=== PATIENT | female | born 1960 | race Caucasian/White ===

== ENCOUNTER 2019-07-01 08:53 | Emergency (ER) | payer SELFPAY ==
[~2019-07-01] VITALS: Ht 165.1 cm; Wt 97.7 kg
--- NOTE | 2019-07-01 09:02 | ED General ---
General Stated Complaint: ABN LAB RESULTS History of Present Illness Date Seen by Provider: July 01, 2019 Time Seen by Provider: 09:02 Initial Comments Patient presenting to emergency department for evaluation of anemia. She says since last Saturday she has been having more dyspnea on exertion and has been more dizzy and lightheaded. She had her labs checked by her primary care provider yesterday and her hemoglobin was 6.1 and she was called this morning and told to come to the emergency department to get a blood transfusion. She denies any pain fevers chills nausea vomiting diarrhea black or bloody stools. She says this has happened at least once in the past her hemoglobin dropped to 6 and she had an extensive workup including upper and lower scopes as well as a pill endoscopy but no etiology was found to her anemia. She is in no obvious distress with normal vital signs. Allergies and Home Medications Allergies Coded Allergies: Penicillins (Verified Allergy, Unknown, rash, 07/01/19) Sulfa (Sulfonamide Antibiotics) (Verified Allergy, Unknown, rash, 07/01/19) cephalexin (Verified Allergy, Unknown, rash, 07/01/19) ciprofloxacin (Verified Allergy, Unknown, rash, 07/01/19) morphine (Verified Allergy, Unknown, headache, nausea, vomiting, 07/01/19) Patient Home Medication List Home Medication List Reviewed: Yes Review of Systems Review of Systems Constitutional: dizziness EENTM: no symptoms reported Respiratory: dyspnea on exertion Cardiovascular: no symptoms reported Gastrointestinal: no symptoms reported Genitourinary: no symptoms reported Musculoskeletal: no symptoms reported Skin: no symptoms reported Psychiatric/Neurological: No Symptoms Reported All Other Systems Reviewed Negative Unless Noted: Yes Past Ybmtgdi-Cacgxu-Ufbtsg Hx Patient Social History Recent Foreign Travel: No Contact w/Someone Who Travel: No Physical Exam Vital Signs Vital Signs - First Documented 07/01/19 09:05 Temp 36.5 Pulse 104 Resp 16 B/P (MAP) 138/59 (85) Pulse Ox 100 O2 Delivery Room Air Capillary Refill : Height, Weight, BMI Height: '" Weight: lbs. oz. kg; BMI Method: General Appearance: No Apparent Distress, WD/WN Eyes: Bilateral Eye Conjunctivae Pale HEENT: PERRL/EOMI Neck: Supple Respiratory: No Respiratory Distress Cardiovascular: Regular Rate, Rhythm Gastrointestinal: Non Tender, Soft Back: Normal Inspection Extremity: Normal Capillary Refill Neurologic/Psychiatric: Alert, Oriented x3 Skin: Warm/Dry Progress/Results/Core Measures Suspected Sepsis SIRS Temperature: Pulse: Respiratory Rate: Laboratory Tests 07/01/19 09:12: White Blood Count 8.6 Blood Pressure / Mean: Laboratory Tests 07/01/19 09:12: Creatinine 0.69, INR Comment 1.0, Platelet Count 240, Total Bilirubin 0.2 Results/Orders Lab Results Laboratory Tests Test 07/01/19 09:12 Range/Units White Blood Count 8.6 4.3-11.0 10^3/uL Red Blood Count 2.85 L 4.35-5.85 10^6/uL Hemoglobin 5.7 *L 11.5-16.0 G/DL Hematocrit 20 *L 35-52 % Mean Corpuscular Volume 72 L 80-99 FL Mean Corpuscular Hemoglobin 20 L 25-34 PG Mean Corpuscular Hemoglobin Concent 28 L 32-36 G/DL Red Cell Distribution Width 16.3 H 10.0-14.5 % Platelet Count 240 130-400 10^3/uL Mean Platelet Volume 9.7 7.4-10.4 FL Neutrophils (%) (Auto) 58 42-75 % Lymphocytes (%) (Auto) 27 12-44 % Monocytes (%) (Auto) 7 0-12 % Eosinophils (%) (Auto) 7 0-10 % Basophils (%) (Auto) 1 0-10 % Neutrophils # (Auto) 4.9 1.8-7.8 X 10^3 Lymphocytes # (Auto) 2.3 1.0-4.0 X 10^3 Monocytes # (Auto) 0.6 0.0-1.0 X 10^3 Eosinophils # (Auto) 0.6 H 0.0-0.3 10^3/uL Basophils # (Auto) 0.1 0.0-0.1 10^3/uL Prothrombin Time 13.0 12.2-14.7 SEC INR Comment 1.0 0.8-1.4 Activated Partial Thromboplast Time 25 24-35 SEC Sodium Level 133 L 135-145 MMOL/L Potassium Level 4.4 3.6-5.0 MMOL/L Chloride Level 96 L 98-107 MMOL/L Carbon Dioxide Level 25 21-32 MMOL/L Anion Gap 12 5-14 MMOL/L Blood Urea Nitrogen 16 7-18 MG/DL Creatinine 0.69 0.60-1.30 MG/DL Estimat Glomerular Filtration Rate > 60 BUN/Creatinine Ratio 23 Glucose Level 357 H 70-105 MG/DL Calcium Level 9.1 8.5-10.1 MG/DL Corrected Calcium 9.4 8.5-10.1 MG/DL Total Bilirubin 0.2 0.1-1.0 MG/DL Aspartate Amino Transf (AST/SGOT) 33 5-34 U/L Alanine Aminotransferase (ALT/SGPT) 22 0-55 U/L Alkaline Phosphatase 150 H 40-136 U/L Total Protein 7.4 6.4-8.2 GM/DL Albumin 3.6 3.2-4.5 GM/DL My Orders Orders - ARNOL VINSON DO Cbc With Automated Diff (07/01/19 09:05) Comprehensive Metabolic Panel (07/01/19 09:05) Partial Thromboplastin Time (07/01/19 09:05) Protime With Inr (07/01/19 09:05) Type And Screen (07/01/19 09:05) Vital Signs/I&O 07/01/19 09:05 Temp 36.5 Pulse 104 Resp 16 B/P (MAP) 138/59 (85) Pulse Ox 100 O2 Delivery Room Air Capillary Refill : Progress Note : Progress Note Patient will have her labs rechecked here and anemic she will need transfer to [facility] as we do not have type-specific blood here in [facility]. I spoke to Dr. Perez at [facility] and she agreed to accept patient. She said she would likely try and set up outpatient transfusion and she did not want her to get a full admission. She would try and get her at least 2 units of blood and then likely lead her go home today. She said she wasn't being contact with Dr. Larsen to have her follow-up for repeat labs tomorrow if she gets released later today. Patient wants to drive private vehicle with a friend which I advised against her driving. Patient accepted the risks of driving herself including and disability. Patient transferred in stable condition with plans for her to receive blood. Departure Impression Primary Impression: Anemia Additional Impression: ESTRADA (dyspnea on exertion) Disposition: 02 XFER SHT-TRM HOSP Condition: Stable Transfer Transfer Reason: Exceeds level of care Time Spoke to Accepting Phy: 10:05 Transfer Facility: [facility]. Referrals: JASON LARSEN MD (PCP/Family) Primary Care Physician ARNOL VINSON DO July 01, 2019 09:02
--- OUTSIDE RECORDS SUMMARY | 2019-07-01 09:16 | XMS REPORT ---
Author Author Elly SHAH Organization [facility] Address [address] [place] [address] Care Team Providers Care Him Tech Name Role Phone KASANDRA SHAH Unavailable PROBLEMS No Known Problems ALLERGIES Substance Reaction Event Type Date Status Sulfacetamide Sodium rash Drug Allergy Jan, Active Penicillin G Potassium rash Drug Allergy Jan, Activ e ENCOUNTERS Encounter Location Date Diagnosis [facility] [address] [facility] [id number] [place] [address] Jan, BMI 40.0-44.9, adult Z68.41 ; Cough R05 and Acute nasopharyngitis J00 IMMUNIZATIONS No Known Immunizations SOCIAL HISTORY Never Assessed REASON FOR VISIT Cough/congestion x 2 days.--MELISSA Miller PLAN OF CARE Activity Details Follow Up as needed or reg fu with pc p Reason: VITAL SIGNS Height 64 in 2018-01-15 Weight 240 lbs 2018-01-15 Temperature 98.7 degrees Fahrenheit 2018-01-15 Heart Rate 88 bpm 2018-01-15 Respiratory Rate 20 2018-01-15 BMI 41.19 kg/m2 2018-01-15 Blood pressure systolic 166 mmHg 2018-01-15 Blood pressure diastolic 60 mmHg 2018-01-15 MEDICATIONS Medication Instructions Dosage Frequency Start Date End Date Duration S tatus Amitriptyline HCl 100 MG Orally Once a day at bedtime 1 tablet Active Fluoxetine HCl 40 MG Orally Once a day 1 capsule 24h 30 day(s) Active Tessalon Perles 100 mg Orally Three times a day 1 capsule as needed 8h Jan, 10 days Active Carafate 1 GM Orally four tiimes a day 1 tablet on an empty stomach Active MetFORMIN HCl ER 500 MG Orally Twice a day 2 tablet with evening meal 12 h Active Levothyroxine Sodium 75 MCG Orally Once a day 1 tablet on an empty stomach in the morning 24h 30 day(s) Active Tizanidine HCl 4 MG Orally once a day at bedtime 1 tablet as needed Active Protonix 40 MG Orally Once a day 1 tablet 24h 30 day (s) Active RESULTS No Results PROCEDURES No Known procedures INSTRUCTIONS MEDICATIONS ADMINISTERED No Known Medications MEDICAL (GENERAL) HISTORY Type Description Date Medical History hypertension Medical History lupus Medical History fibromyalgia Medical History hypothyroidism Medical History Diabetes type 2 Surgical History thyroidectomy 1996 Surgical History rt knee arthroscopy 1987 Surgical History uterine ablasion 2002 Surgical History Lt hip replacement 2013 Hospitalization History surgeries Hospitalization History hemoglobin of 6/black tarry stools-3 units of blood 01/02/18-01/10/18
--- OUTSIDE RECORDS SUMMARY | 2019-07-01 09:16 | XMS REPORT | Continuity of Care Document ---
Demographics Address [address] [place] [address] x Preferred Language Unknown Marital Status Unknown Adventism Affiliation Unknown Race Unknown Ethnic Group Unknown Author Organization Unknown Address Unknown Phone Unavailable Allergies Active Description Code Type Severity Reaction Onset Reported/Identified Relationship to Patient Clinical Status Yes PCN UNKNOWN UNKNOWN Yes SULFA UNKNOWN UNKNOWN Medications There is no data. Problems Date Dx Coded Attending Type Code Diagnosis Diagnosed By 07/08/2018 BEBA DOLAN MD, Ot D50.9 IRON DEFICIENCY ANEMIA, UNSPECIFIED 07/08/2018 BEBA DOLAN MD Ot E03.9 HYPOTHYROIDISM, UNSPECIFIED 07/08/2018 BEBA DOLAN MD Ot E11.9 TYPE 2 DIABETES MELLITUS WITHOUT COMPLIC 07/08/2018 BEBA DOLAN MD Ot I10 ESSENTIAL (PRIMARY) HYPERTENSION 07/08/2018 BEBA DOLAN MD Ot M19.91 PRIMARY OSTEOARTHRITIS, UNSPECIFIED SITE 07/08/2018 BEBA DOLAN MD Ot M32.9 SYSTEMIC LUPUS ERYTHEMATOSUS, UNSPECIFIE 07/08/2018 BEBA DOLAN MD Ot R63.5 ABNORMAL WEIGHT GAIN 07/08/2018 BEBA DOLAN MD Ot Z79.84 SNF (CURRENT) USE OF ORAL HYPOGLYC 07/08/2018 BEBA DOLAN MD Ot Z79.899 OTHER ORDNANCE HANDLER (CURRENT) DRUG THERAPY 07/10/2018 BEBA DOLAN MD Ot D50.9 IRON DEFICIENCY ANEMIA, UNSPECIFIED 07/10/2018 BEBA DOLAN MD Ot E03.9 HYPOTHYROIDISM, UNSPECIFIED 07/10/2018 BEBA DOLAN MD Ot E11.9 TYPE 2 DIABETES MELLITUS WITHOUT COMPLIC 07/10/2018 BEBA DOLAN MD Ot I10 ESSENTIAL (PRIMARY) HYPERTENSION 07/10/2018 BEBA DOLAN MD Ot M19.91 PRIMARY OSTEOARTHRITIS, UNSPECIFIED SITE 07/10/2018 BEBA DOLAN MD Ot M32.9 SYSTEMIC LUPUS ERYTHEMATOSUS, UNSPECIFIE 07/10/2018 BEBA DOLAN MD Ot R63.5 ABNORMAL WEIGHT GAIN 07/10/2018 BEBA DOLAN MD Ot Z79.84 SNF (CURRENT) USE OF ORAL HYPOGLYC 07/10/2018 BEBA DOLAN MD Ot Z79.899 OTHER SNF (CURRENT) DRUG THERAPY 07/14/2018 BEBA DOLAN MD Ot D50.9 IRON DEFICIENCY ANEMIA, UNSPECIFIED 07/14/2018 BEBA DOLAN MD Ot E03.9 HYPOTHYROIDISM, UNSPECIFIED 07/14/2018 BEBA DOLAN MD Ot E11.9 TYPE 2 DIABETES MELLITUS WITHOUT COMPLIC 07/14/2018 BEBA DOLAN MD Ot I10 ESSENTIAL (PRIMARY) HYPERTENSION 07/14/2018 BEBA DOLAN MD Ot M19.91 PRIMARY OSTEOARTHRITIS, UNSPECIFIED SITE 07/14/2018 BEBA DOLAN MD, Ot M32.9 SYSTEMIC LUPUS ERYTHEMATOSUS, UNSPECIFIE 07/14/2018 BEBA DOLAN MD, Ot R63.5 ABNORMAL WEIGHT GAIN 07/14/2018 BEBA DOLAN MD, Ot Z79.84 ORDNANCE HANDLER (CURRENT) USE OF ORAL HYPOGLYC 07/14/2018 BEBA DOLAN MD, Ot Z79.899 OTHER ORDNANCE HANDLER (CURRENT) DRUG THERAPY Procedures There is no data. Results There is no data. Encounters ACCT No. Visit Date/Time Discharge Status Pt. Type Provider Facility Loc./Unit Complaint [id number] 10/31/2018 13:46:00 10/31/2018 23:59: 00 DIS Outpatient RadhamesSuea [id number] 09/11/2018 15:15:00 09/11/2018 23:59: 00 DIS Outpatient Sue Riccia [id number] 10/31/2018 13:57:53 Document Registration [id number] 07/09/2018 00:10:00 23:59:59 CLS Preadmit BEBA DOLAN MD [facility] [id number] 04/10/2018 12:14:00 019 00:01:00 DIS Outpatient BEBA DOLAN MD [facility]
[2019-07-01 09:37] LABS: BASOPHILS % (AUTO) 1 % (0-10); EOSINOPHILS % (AUTO) 7 % (0-10); LYMPHOCYTES # (AUTO) 2.3 X 10^3 (1.0-4.0); LYMPHOCYTES % (AUTO) 27 % (12-44); MEAN CORPUSCULAR HGB CONC 28 G/DL (32-36); MEAN CORPUSCULAR VOLUME 72 FL (80-99); MEAN PLATELET VOLUME 9.7 FL (7.4-10.4); MONOCYTES # (AUTO) 0.6 X 10^3 (0.0-1.0); MONOCYTES % (AUTO) 7 % (0-12); NEUTROPHILS # (AUTO) 4.9 X 10^3 (1.8-7.8); NEUTROPHILS % (AUTO) 58 % (42-75); PLATELET COUNT 240 10^3/uL (130-400); RED CELL DISTRIBUTION WIDTH 16.3 % (10.0-14.5); WHITE BLOOD COUNT 8.6 10^3/uL (4.3-11.0)
[2019-07-01 09:38] LABS: BASOPHILS # (AUTO) 0.1 10^3/uL (0.0-0.1); EOSINOPHILS # (AUTO) 0.6 10^3/uL (0.0-0.3)
[2019-07-01 09:39] LABS: HEMOGLOBIN 5.7 G/DL (11.5-16.0); MEAN CORPUSCULAR HEMOGLOBIN 20 PG (25-34)
[2019-07-01 09:40] LABS: HEMATOCRIT 20 % (35-52)
[2019-07-01 09:48] LABS: ALKALINE PHOSPHATASE 150 U/L (40-136); BILIRUBIN,TOTAL 0.2 MG/DL (0.1-1.0); BUN/CREATININE RATIO 23; CALCIUM 9.1 MG/DL (8.5-10.1); CARBON DIOXIDE 25 MMOL/L (21-32); CHLORIDE 96 MMOL/L (98-107); CREATININE SERUM 0.69 MG/DL (0.60-1.30); GFR ESTIMATED > 60; GLUCOSE 357 MG/DL (70-105); POTASSIUM 4.4 MMOL/L (3.6-5.0); SODIUM 133 MMOL/L (135-145)
[2019-07-01 09:49] LABS: ALANINE AMINOTRANSFERASE 22 U/L (0-55); ALBUMIN 3.6 GM/DL (3.2-4.5); TOTAL PROTEIN 7.4 GM/DL (6.4-8.2)
[2019-07-01 10:16] VITALS: BP 127/63
[2019-07-01] MEDS ORDERED: HYDR-83 PO (13:26)
[2019-07-01] MEDS ORDERED: LEVO75TA6 PO (13:26)
[2019-07-01] MEDS ORDERED: VALS1TAB80 PO (13:26)
[2019-07-01] MEDS ORDERED: ROPI2TAB PO (13:26)
[2019-07-01] MEDS ORDERED: PARO40TA3 PO (13:26)
[2019-07-01] MEDS ORDERED: GLIP10TA24 PO (13:26)
[2019-07-01] MEDS ORDERED: METF-399 PO (13:26)
[2019-07-01] MEDS ORDERED: OMEP20CA18 PO (13:26)
[2019-07-01] MEDS ORDERED: TIZA4CAP8 PO (13:26)
[2019-07-01] MEDS ORDERED: FLUO20TA28 PO (13:26)
[2019-07-01] MEDS ORDERED: AMIT100T2 PO (13:26)
== END 2019-07-01 10:16 | disposition short-term general hospital (02) ==
LOC: EDUNIT# 08:53 → ER FS 08:55
DX: D64.9 Anemia, unspecified (principal); R06.09 Other forms of dyspnea; Z88.0 Allergy status to penicillin; Z88.2 Allergy status to sulfonamides; Z88.1 Allergy status to other antibiotic agents; Z88.5 Allergy status to narcotic agent
CPT/HCPCS: 36415; 80053; 85025; 85610; 85730

== ENCOUNTER 2019-07-01 11:40 | Outpatient (CLI) | payer SELFPAY ==
[~2019-07-01] VITALS: Ht 165.1 cm; Wt 97.7 kg
[2019-07-01] VITALS (7 sets, daily range): BP systolic 142–194; BP diastolic 70–86
[~2019-07-01 11:40] MED LIST: ACETAMINOPHEN 325 MG TABLET PO PRN; EPINEPHrine INJECTION 1 MG/ML AMP IM PRN; FUROSEMIDE 40 MG/4 ML INJ (LASIX) IVP ONE; HYDROCORTISONE 100 MG/2 ML (Solu-CORTEF) VIAL IV PRN; IRON DEXTRAN INJECTION 1,000 MG in NS (IVPB) 250 ML IV ONE; IRON DEXTRAN INJECTION 25 MG in NS (IVPB) 5.75 ML IV ONE; NS IV 500 ML 500 ML IV SCH; RT-ALBUTEROL SULF 2.5 MG/3 ML PRE-MIX VIAL IH PRN; diphenhydrAMINE 50 MG/ML INJ (BENADRYL) IVP PRN
--- NOTE | 2019-07-01 13:17 | NUR ---
INFED TEST DOSE COMPLETED AT 1215, NO REACTION AND AT 1230 PHONED PHARMACY FOR MEDICATION.
[2019-07-01] MEDS ORDERED: VALS1TAB80 PO (13:26)
[2019-07-01] MEDS ORDERED: OMEP20CA18 PO (13:26)
[2019-07-01] MEDS ORDERED: GLIP10TA24 PO (13:26)
[2019-07-01] MEDS ORDERED: METF-399 PO (13:26)
[2019-07-01] MEDS ORDERED: PARO40TA3 PO (13:26)
[2019-07-01] MEDS ORDERED: HYDR-83 PO (13:26)
[2019-07-01] MEDS ORDERED: ROPI2TAB PO (13:26)
[2019-07-01] MEDS ORDERED: FLUO20TA28 PO (13:26)
[2019-07-01] MEDS ORDERED: AMIT100T2 PO (13:26)
[2019-07-01] MEDS ORDERED: TIZA4CAP8 PO (13:26)
[2019-07-01] MEDS ORDERED: LEVO75TA6 PO (13:26)
--- NOTE | 2019-07-01 14:47 | CONSULTATION REPORT ---
DATE OF SERVICE: 07/01/2019 ADMITTING PRIMARY CARE PHYSICIAN: Dr. Pierre. HISTORY OF PRESENT ILLNESS: The patient is a 58-year-old female with a history of anemia. She states that in 12/2017 she did have a significant episode of fatigue and found to be anemic requiring blood transfusion. During that admission, she underwent an EGD, colonoscopy as well as a capsule endoscopy, but these were all normal. She reports that around 06/2018 she did feel slightly sluggish and did require one unit of packed red blood cells at that time. This time around, she reported feeling exertional shortness of breath as well as bilateral lower extremity edema and she did have laboratory work done, which did show hemoglobin of 5.7. She is otherwise asymptomatic, does not report any symptoms of gastroesophageal reflux disease nor peptic ulcer disease. She also does not report any major issues with constipation or diarrhea as well as no red blood per rectum nor any dark tarry stools. She does have extensive past medical history, which does include rheumatoid arthritis and lupus and has taken a different anti-inflammatory medications in the past. Upon examination, she does not have any abdominal pain. PAST MEDICAL HISTORY: Hypertension, diabetes, Walt's thyroiditis, rheumatoid arthritis, lupus, restless leg syndrome. PAST SURGICAL HISTORY: Total thyroidectomy, carpal tunnel release, uterine ablation, L4-L5 diskectomy, left total hip arthroplasty. ALLERGIES: PENICILLIN, SULFA. MEDICATIONS: Valsartan, levothyroxine, glipizide, metformin, Requip, Plaquenil, Protonix, Prozac, acyclovir, thiazide, hydrocodone. SOCIAL HISTORY: Negative smoke, negative alcohol. FAMILY HISTORY: Mother and maternal grandmother with lupus. VITAL SIGNS: Stable, afebrile. REVIEW OF SYSTEMS: Well-nourished female, currently in no acute distress. She is not experiencing any shortness of breath or difficulty breathing. No chest pain, palpitations, diaphoresis. No nausea, vomiting. No heartburn, reflux or acid indigestion. No major issues with diarrhea nor constipation as well as no red blood per rectum nor any dark tarry stools. No fever, chills, no recent inadvertent weight loss. All other review of systems negative. PHYSICAL EXAMINATION: CHEST: Clear. Good breath sounds bilaterally. HEART: Regular, no murmurs. EXTREMITIES: No lower extremity edema, negative Homans sign. HEENT: No scleral icterus. NECK: No cervical lymphadenopathy. ABDOMEN: Soft, nontender, nondistended. SKIN: Warm, dry. ASSESSMENT AND PLAN: A 58-year-old female with anemia of unknown etiology. She is receiving iron as well as packed red blood cell transfusion. RECOMMENDATION: At this time is that she proceed with continued medical management and serial lab draws to monitor her hemoglobin. If she does have continued loss of hemoglobin, Even though she is asymptomatic, we will recommend an upper endoscopy due to her previous history as well as medications to look for an atypical form of peptic ulcer disease or reflux esophagitis. Job ID: [id number] DocumentID: [id number] Dictated Date: 07/01/2019 14:24:31 Proofer Apprentice Date: 07/01/2019 14:45:44 Dictated By: SAMMI LEONARD MD MTDD
[2019-07-01] MEDS ORDERED: FUROSEMIDE 40 MG/4 ML INJ (LASIX) ONE (15:01)
--- NOTE | 2019-07-01 17:20 | NUR ---
2 UNIT BLOOD TRANSFUSION COMPLETED. DENIES COMPLAINTS, TEMP 37.6, PULSE 95, RESP 18, B/P 194/86, SAO2 99% ON ROOM AIR. POST TRANSFUSION H&H DRAWN FROM RIGHT FOREARM SL, THEN RIGHT FOREARM SL DC'D. WILL MONITOR FOR 30 MIN FOR POSSIBLE ADVERSE REACTION.
[2019-07-01 17:42] LABS: HEMOGLOBIN 8.4 G/DL (11.5-16.0)
--- NOTE | 2019-07-01 17:50 | NUR ---
DENIES COMPLAINTS. ALERT, HAS BEEN UP TO BR TO VOID MULTIPLE TIMES, GAIT STEADY. HAS HAD DISCHARGE INSTRUCTIONS. DISMISSED PER WC TO PRIVATE VEHICLE WITH STAFF X1 AND FRIEND.
== END 2019-07-01 17:50 | disposition home or self-care (01) ==
LOC: SDC 11:40
PROVIDERS: ATTEND Internal Medicine
DX: D64.9 Anemia, unspecified (principal); I10 Essential (primary) hypertension; E11.9 Type 2 diabetes mellitus without complications; M06.9 Rheumatoid arthritis, unspecified; M32.9 Systemic lupus erythematosus, unspecified; G25.81 Restless legs syndrome; E06.3 Autoimmune thyroiditis; E89.0 Postprocedural hypothyroidism; Z96.642 Presence of left artificial hip joint; Z79.84 Long term (current) use of oral hypoglycemic drugs; Z79.899 Other long term (current) drug therapy
CPT/HCPCS: 36415; 36430; 82728; 83540; 85014; 85018; 86850; 86900; 86901; 86920; 96365; 96366

== ENCOUNTER 2019-10-16 12:05 | Outpatient (RCR) | payer SELFPAY ==
[2019-10-02] MEDS: IRON DEXTRAN IV SCH ×2 (13:29)
[2019-10-02] MEDS: SODIUM CHLORIDE IV SCH ×2 (13:29)
[2019-10-02 14:42] VITALS: BP 162/74
[~2019-10-16] VITALS: Ht 157 cm
[~2019-10-16 12:05] MED LIST changes: -ACETAMINOPHEN 325 MG TABLET PO PRN; +ACHD5005 PO; +AMIT100T2 PO; -EPINEPHrine INJECTION 1 MG/ML AMP IM PRN; +FLUO20TA28 PO; -FUROSEMIDE 40 MG/4 ML INJ (LASIX) IVP ONE; +GLIP10TA24 PO; -HYDROCORTISONE 100 MG/2 ML (Solu-CORTEF) VIAL IV PRN; -IRON DEXTRAN INJECTION 1,000 MG in NS (IVPB) 250 ML IV ONE; -IRON DEXTRAN INJECTION 25 MG in NS (IVPB) 5.75 ML IV ONE; +LEVO75TA6 PO; +METF-399 PO; -NS IV 500 ML 500 ML IV SCH; +OMEP20CA18 PO; +PARO40TA3 PO; +ROPI2TAB PO; -RT-ALBUTEROL SULF 2.5 MG/3 ML PRE-MIX VIAL IH PRN; +TIZA4CAP8 PO; +VALS1TAB80 PO; -diphenhydrAMINE 50 MG/ML INJ (BENADRYL) IVP PRN
[2019-10-16] MEDS: SODIUM CHLORIDE IV SCH ×2 (12:58)
[2019-10-16] MEDS: IRON DEXTRAN IV SCH ×2 (12:58)
[2019-10-16 14:40] VITALS: BP 148/73
== END 2019-10-16 14:40 | disposition home or self-care (01) ==
LOC: SDC 12:05
PROVIDERS: ATTEND Family Medicine
DX: E61.1 Iron deficiency (principal)
CPT/HCPCS: 96365

== ENCOUNTER → 2020-01-14 | Outpatient (CLI) | payer OTHER ==
[~2020-01-14] VITALS: Ht 165.1 cm; Wt 93.0 kg
[2020-01-14] VITALS (7 sets, daily range): BP systolic 128–168; BP diastolic 61–81
[~2020-01-14] MED LIST changes: +NS IV 500 ML 500 ML IV SCH
--- NOTE | 2020-01-14 13:34 | NUR ---
SECOND UNIT OF PACKED RED BLOOD CELLS INFUSED WITHOUT DIFFICULTY. H&H DRAWN PER LAB. VSS. LINE FLUSHED WITH NORMAL SALINE. POST BLOOD TRANSFUSION HOME CARE INSTRUCTIONS GIVEN. SALINE LOCK DC'D.
[2020-01-14 13:49] LABS: HEMOGLOBIN 8.5 g/dL (11.5-16.0)
== END ==
LOC: SDC 07:55
PROVIDERS: ATTEND Family Medicine
DX: D64.9 Anemia, unspecified (principal)
CPT/HCPCS: 36430; 85014; 85018; 86850; 86900; 86901; 86920; P9016; 36415

== ENCOUNTER 2020-02-15 13:02 | Outpatient (RCR) | payer OTHER ==
[2019-12-03 13:00] VITALS: BP 185/88
[2019-12-03] MEDS: SODIUM CHLORIDE IV SCH ×2 (13:08)
[2019-12-03] MEDS: IRON DEXTRAN IV SCH ×2 (13:08)
[2019-12-17] MEDS: IRON DEXTRAN IV SCH ×2 (10:43)
[2019-12-17] MEDS: SODIUM CHLORIDE IV SCH ×2 (10:43)
[2019-12-17 12:10] VITALS: BP 178/85
[2020-02-01] MEDS: SODIUM CHLORIDE IV SCH ×2 (13:46)
[2020-02-01] MEDS: IRON DEXTRAN IV SCH ×2 (13:46)
[2020-02-01 15:15] VITALS: BP 164/71
[~2020-02-15] VITALS: Ht 157 cm; Wt 95.5 kg
[~2020-02-15 13:02] MED LIST changes: -NS IV 500 ML 500 ML IV SCH
[2020-02-15] MEDS: SODIUM CHLORIDE IV SCH ×2 (13:35)
[2020-02-15] MEDS: IRON DEXTRAN IV SCH ×2 (13:35)
[2020-02-15 14:03] VITALS: BP 153/68
== END 2020-03-02 | disposition home or self-care (01) ==
LOC: SDC 13:02
PROVIDERS: ATTEND Family Medicine
DX: E61.1 Iron deficiency (principal)
CPT/HCPCS: 96365; 96366

== ENCOUNTER 2020-03-02 13:25 | Outpatient (RCR) | payer OTHER ==
[2020-03-02 13:34] LABS: BASOPHILS # (AUTO) 0.1 10^3/uL (0.0-0.1); BASOPHILS % (AUTO) 1 % (0-10); EOSINOPHILS # (AUTO) 0.7 10^3/uL (0.0-0.3); EOSINOPHILS % (AUTO) 9 % (0-10); HEMATOCRIT 27 % (35-52); HEMOGLOBIN 7.4 g/dL (11.5-16.0); LYMPHOCYTES # (AUTO) 2.1 10^3/uL (1.0-4.0); LYMPHOCYTES % (AUTO) 26 % (12-44); MEAN CORPUSCULAR HEMOGLOBIN 23 pg (25-34); MEAN CORPUSCULAR HGB CONC 28 g/dL (32-36); MEAN CORPUSCULAR VOLUME 82 fL (80-99); MEAN PLATELET VOLUME 9.5 fL (9.0-12.2); MONOCYTES # (AUTO) 0.6 10^3/uL (0.0-1.0); MONOCYTES % (AUTO) 7 % (0-12); NEUTROPHILS # (AUTO) 4.5 10^3/uL (1.8-7.8); NEUTROPHILS % (AUTO) 57 % (42-75); PLATELET COUNT 304 10^3/uL (130-400)
[2020-03-02 13:59] LABS: BILIRUBIN,TOTAL 0.2 MG/DL (0.1-1.0); CALCIUM 9.4 MG/DL (8.5-10.1); CREATININE SERUM 1.05 MG/DL (0.60-1.30); POTASSIUM 4.2 MMOL/L (3.6-5.0); TOTAL PROTEIN 7.9 GM/DL (6.4-8.2)
== END 2020-05-31 | disposition home or self-care (01) ==
LOC: ONC 13:25
PROVIDERS: ATTEND Internal Medicine Hematology & Oncology
DX: D50.9 Iron deficiency anemia, unspecified (principal); E11.9 Type 2 diabetes mellitus without complications; I10 Essential (primary) hypertension; E03.9 Hypothyroidism, unspecified
CPT/HCPCS: 80053; 82728; 83540; 85025; G0463; 99213